=== PATIENT | female | born 1975 | race Caucasian/White ===

== ENCOUNTER → 2018-05-27 21:06 | Outpatient (CLI) | payer MEDICARE | END | disposition home or self-care (01) | LOC: D.MAMMO 15:30 | DX: Z12.31 Encounter for screening mammogram for malignant neoplasm of breast (principal) ==

== ENCOUNTER 2019-12-05 08:16 | Day surgery (SDC) | payer MEDICARE ==
[~2019-12-05] VITALS: Ht 162.6 cm; Wt 81.6 kg
[~2019-12-05 08:16] MED LIST: MOBIC7.5 MG PO; NORVASC10 MG PO
[2019-12-05 08:55] LABS: HEMATOCRIT 44.7 % (36.0-48.0); HEMOGLOBIN 14.8 g/dL (12-16); MCH 29.5 pg (26.0-34.0); MCHC 33.1 g/dL (31.0-37.0); MEAN PLATELET VOLUME 10.5 fL (7.4-10.4); RBC 5.02 10x6/uL (4.00-5.40); WBC 8.1 10x3/uL (4.8-10.8)
[2019-12-05 09:12] VITALS: BP 145/89; Ht 162.6 cm; Wt 81.6 kg
[2019-12-05] MEDS ORDERED: PERCOCET 10-321 EAC1 PO (12:12)
[2019-12-05] MEDS ORDERED: VISTARIL50 MG PO (12:12)
--- NOTE | 2019-12-05 16:38 | NUR ---
1405 IV DC'D. CATHETER TIP INTACT. NO BLEEDING AT SITE AND BANDAID APPLIED. PT VOICES DESIRE TO GO HOME AND UNDERSTANDS DISCHARGE INSTRUCTIONS. LEFT ARM IN SLING.
--- NOTE | 2019-12-06 09:16 | OP ---
PATIENT NAME: KAREY GILLESPIE MEDICAL RECORD: [id number] :73 LOCATION:[facility] ADMISSION DATE: SURGEON: KEVIN GARCIA DO DATE OF OPERATION: 12/05/2019 PROCEDURE PERFORMED: Left shoulder arthroscopy with a distal clavicle excision and subacromial decompression with acromioplasty, rotator cuff repair, biceps tenodesis, and labral debridement. PREOPERATIVE DIAGNOSES: Left shoulder superior labrum anterior and posterior tear, partial rotator cuff tear, acromioclavicular joint arthritis, subacromial impingement, type 2 acromion. 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 INDICATIONS: Ms. Gillespie is a 44-year-old female who has had pain for quite some time. She has tried all manner of nonoperative treatment. She had an MRI showing the above findings, they call this sublabral foramen, but with a look at it with scope, it ended up being a Raymond complex. She is aware of the risks including infection, bleeding, damage to nerves or vessels, need for further surgery, frozen shoulder, continued pain, need for further surgery, sag in the bicep tendon, celena deformity, bleeding and even and she signed the consent. SURGEON: Kevin Garcia DO DESCRIPTION OF PROCEDURE: The patient was given a block by anesthesia in the preoperative area, given 900 mg of clindamycin, taken to the operative suite, laid in the right lateral decubitus position with an axillary roll. She was sedated and LMA was placed. The left shoulder and upper extremity was then prepped and draped in sterile fashion. A timeout was performed; everyone is agreeance with correct side, site, patient, and procedure. I then began by making two posterior portals and going to the subacromial space first and lateral portal was established with an 18-gauge spinal needle and 11-blade scalpel. Then, anterior portal was established with an 18-gauge spinal needle and 11-blade scalpel. I then performed a subacromial decompression by removing the distal lateral clavicle and also the distal clavicle acromion and removed a portion of the distal clavicle. The distal clavicle excision through the anterior portal. The acromioplasty was done through the lateral portal. I then did a bursectomy. The rotator cuff did have some fraying on the bursal side, but was not full thickness. I then went into the joint and saw the Betzy complex as well as the labral tear, SLAP tear. The cartilage was in good shape, the infraspinatus was as well, the subscapularis was too, but the supraspinatus had fraying and a partial tear of approximately 50%. I then brought in the burner through the anterior portal and performed a biceps tenotomy and debrided the labrum. I then debrided the supraspinatus tendon with a shaver and I decided to put a Regeneten patch on. I then marked it through the lateral portal and then the lateral portal was extended in order to open the rotator cuff for the rotator cuff repair. Careful dissection was made down to the rotator cuff tendon and Regeneten patch was placed on it, stapled medially and laterally. We then terrence attention to the anterior humerus where an incision was made and careful dissection made down to the long head of bicep tendon and brought out through the incision. A unicortical hole was placed in the humerus OPERATIVE REPORT [id number] KAREY GILLESPIE and a 2.9 JuggerKnot unicortical bicep tendon or bicep fixation was put in the humerus and then the bicep was cinched down. I then cut the excess loop and tied it to the bicep tendon with a suture and sutured it down. I then cut the excess tendon suture. Sites were then irrigated with normal saline and closed with 2-0 Vicryl in inverted interrupted fashion and 4-0 Monocryl running on the skin on the open rotator cuff repair as well as the bicep tenodesis site. This was done by Will Bryan, certified substance abuse counselor. Portal sites were closed with 4-0 Monocryl in an inverted interrupted fashion. They were all dressed with Dermabond, Telfa, and Tegaderm. She was awakened and taken to recovery in stable condition. ESTIMATED BLOOD LOSS: Minimal. COMPLICATIONS: None. TRANSINT:[id number] Voice Confirmation ID: [id number] DOCUMENT ID: [id number] KEVIN GARCIA DO at [id number] CC: [id number] DICTATION DATE: 12/05/19 1238 CLEAN IN PLACES OPERATOR: 12/05/19 2313 [facility] [place] 12/05/19 [place] [id number] [place] [id number]
== END 2019-12-05 13:26 | disposition home or self-care (01) ==
LOC: D.OPS 08:16
PROVIDERS: Anesthesiology; ATTEND Orthopaedic Surgery
DX: S43.432A Superior glenoid labrum lesion of left shoulder, initial encounter (principal); M75.102 Unspecified rotator cuff tear or rupture of left shoulder, not specified as traumatic; M19.012 Primary osteoarthritis, left shoulder; X58.XXXA Exposure to other specified factors, initial encounter; K21.9 Gastro-esophageal reflux disease without esophagitis; M25.512 Pain in left shoulder; M75.22 Bicipital tendinitis, left shoulder; M75.42 Impingement syndrome of left shoulder

== ENCOUNTER 2020-11-16 10:00 | Outpatient (CLI) | payer MEDICARE ==
[2020-06-11 07:57] VITALS: BMI 33.5
[~2020-11-16 10:00] MED LIST changes: +PERCOCET 10-321 EAC1 PO; +VISTARIL50 MG PO
== END 2020-11-16 23:59 | disposition home or self-care (01) ==
LOC: D.MAMMO 10:00
PROVIDERS: ATTEND Nurse Practitioner
DX: Z12.31 Encounter for screening mammogram for malignant neoplasm of breast (principal)